=== PATIENT | female | born 1955 | race Asian ===

== ENCOUNTER 2018-11-16 06:54 | Day surgery (SDC) | payer OTHER | END 2018-11-16 08:52 | disposition home or self-care (01) | LOC: OR 06:54 | PROC: 3E0T33Z Introduction of Anti-inflammatory into Peripheral Nerves and Plexi, Percutaneous Approach (ICD-10-PCS; principal; 2018-11-16) | PROC: 3E0T3BZ Introduction of Anesthetic Agent into Peripheral Nerves and Plexi, Percutaneous Approach (ICD-10-PCS; 2018-11-16) | PROC: BR16YZZ Fluoroscopy of Lumbar Facet Joint(s) using Other Contrast (ICD-10-PCS; 2018-11-16) | DX: M47.816 Spondylosis without myelopathy or radiculopathy, lumbar region (principal) | CPT/HCPCS: J1100; J2001 ==

== ENCOUNTER 2019-06-13 09:32 | Day surgery (SDC) | payer OTHER ==
[~2019-06-13] VITALS: Ht 162.6 cm; Wt 82.1 kg
== END 2019-06-13 15:06 | disposition home or self-care (01) ==
LOC: OR 09:32
DX: Z53.29 Procedure and treatment not carried out because of patient's decision for other reasons (principal)

== ENCOUNTER 2019-06-20 07:54 | Day surgery (SDC) | payer OTHER ==
[2019-06-20 08:57] LABS: PLATELET COUNT 254 K/uL (152-353)
[2019-06-20 08:58] LABS: POTASSIUM 3.8 mmol/L (3.6-5.2)
== END 2019-06-20 10:37 | disposition home or self-care (01) ==
LOC: OR 07:54
PROVIDERS: Pain Medicine Interventional Pain Medicine
PROC: 3E0R33Z Introduction of Anti-inflammatory into Spinal Canal, Percutaneous Approach (ICD-10-PCS; principal; 2019-06-20)
PROC: B01BYZZ Fluoroscopy of Spinal Cord using Other Contrast (ICD-10-PCS; 2019-06-20)
DX: M51.16 Intervertebral disc disorders with radiculopathy, lumbar region (principal)
CPT/HCPCS: 80053; 85027; J1020; J2001; J2405; J2704

== ENCOUNTER 2020-03-05 07:47 | Day surgery (SDC) | payer BC, OTHER ==
[~2020-03-05] VITALS: Ht 30.5 cm; Wt 0.5 kg
[2020-03-05 09:29] LABS: PLATELET COUNT 239 K/uL (152-353)
[2020-03-05 09:38] LABS: POTASSIUM 2.9 mmol/L (3.6-5.2)
== END 2020-03-05 11:59 | disposition home or self-care (01) ==
LOC: OR 07:47
PROVIDERS: Pain Medicine Interventional Pain Medicine
PROC: 3E0R33Z Introduction of Anti-inflammatory into Spinal Canal, Percutaneous Approach (ICD-10-PCS; principal; 2020-03-05)
PROC: B01BYZZ Fluoroscopy of Spinal Cord using Other Contrast (ICD-10-PCS; 2020-03-05)
DX: M51.16 Intervertebral disc disorders with radiculopathy, lumbar region (principal)
CPT/HCPCS: 80053; 85027; J1020; J2704; J3010; J3490